=== PATIENT | female | born 1995 | race Caucasian/White ===

== ENCOUNTER 2016-09-09 08:33 | Day surgery (SDC) | payer BC, OTHER ==
[~2016-09-09 08:33] MED LIST: BUPIVACAINE/EPI 0.25% 30 ML SDV ONE; EPINEPHrine 30 MG/30 ML MDV ONE; SCOPOLAMINE HYDROBROMIDE 1.5 MG PATCH TD ONE
[2016-09-09] MEDS ORDERED: LIDOCAINE 1% 2 ML INJ ONE (08:42)
[2016-09-09] MEDS ORDERED: ACETAMINOPHEN 500 MG TAB PO ONE (09:00)
[2016-09-09] MEDS ORDERED: ceFAZolin 2 GM/DEXTROSE 100 ML IV ONE (09:00)
[2016-09-09] MEDS ORDERED: PREGABALIN 150 MG CAP PO ONE (09:00)
[2016-09-09] MEDS ORDERED: LR 1,000 ML IV ONE (09:12)
[2016-09-09] MEDS ORDERED: fentaNYL 100 MCG/2 ML INJ ONE ×2 (10:08→13:19)
[2016-09-09] MEDS ORDERED: PROPOFOL 200 MG/20 ML VIAL ONE (10:08)
[2016-09-09] MEDS ORDERED: LIDOCAINE 2% 100 MG/5 ML SYR ONE (10:13)
[2016-09-09] MEDS ORDERED: MIDAZOLAM 2 MG/2 ML VIAL ONE (10:18)
[2016-09-09] MEDS ORDERED: ONDANSETRON 4 MG/2 ML VIAL ONE ×2 (11:18→14:40)
[2016-09-09] MEDS ORDERED: DEXAMETHASONE 4 MG/ML VIAL ONE (11:18)
[2016-09-09] MEDS ORDERED: HYDROmorphONE/DILAUDID 2 MG/ML INJ ONE (12:59)
[2016-09-09] MEDS ORDERED: HYDROmorphONE/DILAUDID 1 MG/ML SYR ONE (13:25)
[2016-09-09] MEDS ORDERED: OXYCODONE/APAP 5/325 TAB ONE (16:19)
== END 2016-09-09 17:40 | disposition home or self-care (01) ==
LOC: FSGY 08:33
PROVIDERS: ATTEND Orthopaedic Surgery Sports Medicine
PROC: 0SQ94ZZ Repair Right Hip Joint, Percutaneous Endoscopic Approach (ICD-10-PCS; principal; 2016-09-09 09:45)
DX: M25.851 Other specified joint disorders, right hip (principal)
CPT/HCPCS: 29914; 29916; 76001; C1769; C1713; J0171; J0690; J1100; J1170; J2001; J2250; J2405; J2704; J3010